=== PATIENT | male | born 1975 | race Caucasian/White ===

== ENCOUNTER 2025-10-01 14:29 | Emergency (ER) | payer MEDICARE, OTHER ==
[~2025-10-01] VITALS: Ht 180.3 cm; Wt 111.4 kg
[2025-10-01 14:36] VITALS: TEMP 98.1
[2025-10-01] MEDS ORDERED: LISI-657 PO (14:42)
[2025-10-01] MEDS: SODIUM CHLORIDE 0.9% 1,000 ML IV ONE (15:17)
[2025-10-01 15:33] LABS: PLATELET COUNT (AUTO) 260 K/uL (150-450); RED BLOOD CELL COUNT(AUTO) 5.77 MIL/uL (4.50-5.90); RED CELL DISTRIBUTION WIDTH 14.2 % (11.5-14.5); WHITE BLOOD COUNT (AUTO) 7.7 K/uL (4.5-11.0)
[2025-10-01 15:35] LABS: CALCIUM, TOTAL 9.1 mg/dL (8.8-10.5); CREATININE 0.79 mg/dL (0.60-1.30); GLOMERULAR FILTR. RATE CALC > 60 mL/min (>60); GLUCOSE,RANDOM 102 mg/dL (70-110); SODIUM SERUM 143 mmol/L (136-145); UREA NITROGEN, BLOOD 7 mg/dL (7-18)
[2025-10-01 15:41] LABS: ALCOHOL, BLOOD (SERUM) 151.0 mg/dL (0-10)
[2025-10-01 15:42] LABS: ALCOHOL, URINE DRUG SCREEN POSITIVE (NEGATIVE); AMPHET/METH SCREEN,URINE NEGATIVE (NEGATIVE); BARBITURATE SCREEN, URINE NEGATIVE (NEGATIVE); CANNABINOID SCREEN,URINE POSITIVE (NEGATIVE); COCAINE SCREEN,URINE NEGATIVE (NEGATIVE); METHADONE SCREEN, URINE NEGATIVE (NEGATIVE)
[2025-10-01 15:46] LABS: PH,URINE DRUG SCREEN 6.0 (5.0-8.0)
[2025-10-01 16:22] LABS: ASPARTATE AMINOTRANSFERASE 31.0 U/L (15-37); TOTAL PROTEIN, SERUM 8.0 g/dL (6.4-8.2)
[2025-10-01] MEDS: ONDANSETRON HCL 4 MG/2 ML VIAL IVP ONE (16:41)
[2025-10-01 17:17] VITALS: BP 148/98; PULSE 89; RESP 18; O2SAT 98
[2025-10-01] MEDS ORDERED: CHLO10CA7 PO (17:17)
== END 2025-10-01 17:25 | disposition home or self-care (01) ==
LOC: EMS 14:29
DX: F10.229 Alcohol dependence with intoxication, unspecified (principal); E86.0 Dehydration; I10 Essential (primary) hypertension; F12.90 Cannabis use, unspecified, uncomplicated; F17.210 Nicotine dependence, cigarettes, uncomplicated; Z90.89 Acquired absence of other organs; Z79.899 Other long term (current) drug therapy; Y90.6 Blood alcohol level of 120-199 mg/100 ml
CPT/HCPCS: 99284; 96374; 96361; 80048; 80076; 83735; 85025; 36415; 93005; 80307; G0480; J2405; J7030